=== PATIENT | female | born 1995 | race Caucasian/White ===

== ENCOUNTER 2020-11-04 13:23 | Outpatient (CLI) | payer OTHER, SELFPAY ==
--- NOTE | ~2020-11-04 | US_ITS ---
EXAMINATION: US OB /maternal detail DATE: 11/04/2020 14:15 INDICATION: survey TECHNIQUE: Multiple obstetric sonographic images performed. FINDINGS: No prior studies for comparison. There is a single living fetus in breech presentation. The placenta is posterior without placenta pr evia. Amniotic fluid volume is normal. cardiac activity and movement is noted with a heart rate of 149 beats per minute. The following anatomy was identified as normal: 3 vessel cord cord insertion kidneys urinary bladder stomach spine diaphragm ventricles cisterna magna cerebellum There is a small echogenic foci in the right ventricle. The four-chamber heart is otherwise within no rmal limits including outflow tracts. The following biometric data were obtained: BPD: 42mm corresponds to gestational age 18 weeks 4 days. Head circumference: 157 mm corresponds to gestational age 18 weeks 4 days. Abdominal circumference: 131 mm corresponds to gestational age 18 weeks 4 days. Femur length: 28 mm corresponds to gestational age 18 weeks 4 days. Head circumference to abdominal circumference ratio: 1.2 (normal range for expected gestational age i s 1.09-1.27). Estimated weight: 246 grams +/- 37 grams using Hadlock method. IMPRESSION: 1: Single living intrauterine with an estimated gestational age of 18weeks 4days by current ultrasound measurements, with an EDC of 04/03/2021 in breech presentation. 2. Small echogenic foci in the right ventricle. The four-chamber heart is otherwise within normal li mits including outflow tracts. Otherwise, unremarkable survey. Reviewed, dictated and finalized at location B. IMPRESSION: 1: Single living intrauterine with an estimated gestational age of 18 weeks 4days by current ultrasound measurements, with an EDC of 04/03/2021 in naresh ech presentation. 2. Small echogenic foci in the right ventricle. The four-chamber heart is othe rwise within normal limits including outflow tracts. Otherwise, unremarkable fe josé survey.
== END 2020-11-04 13:24 | disposition home or self-care (01) ==
PROVIDERS: PCP Family Medicine; Visit Provider Family Medicine
DX: Z34.92 Encounter for supervision of normal pregnancy, unspecified, second trimester (principal); Z3A.18 18 weeks gestation of pregnancy
CPT/HCPCS: 76805

== ENCOUNTER 2020-11-29 09:09 | Outpatient (CLI) | payer OTHER, SELFPAY ==
--- NOTE | ~2020-11-29 | US_ITS ---
EXAMINATION: US OB follow up DATE: 11/29/2020 09:49 INDICATION: Follow-up cardiac echogenic focus on prior ultrasound now during late second trimes ter . TECHNIQUE: Real-time ultrasound of the pelvis was performed. The interpreting radiologist was not pre sent for the study. COMPARISON: None. FINDINGS: There is a single living fetus in breech presentation. The placenta is posterior. heart rate i s 150 beats per minute (bpm). There appears to be linear echogenicity along the moderate or band in t he right ventricle and along the tricuspid and mitral valves no echogenic intracardiac focus along th e papillary muscles. The amniotic fluid index is 11.1 cm, which is normal (5th%-95%: 9.7-21.6 cm at 22 weeks estimated gestational age). The following biometric data were obtained: BPD: 5.3 cm -> 22 weeks 0 days Head circumference: 20.9 cm -> 23 weeks 0 days Abdominal circumference: 18.5 cm -> 23 weeks 2 days Femur length: 4.0 cm -> 23 weeks 0 days Cephalic index of 68.7 which is slightly below the normal range of 70-86. These measurements are otherwise concordant. Head circumference to abdominal circumference ratio: 1.13 (normal range 1.05-1.21). Estimated weight: 560 g (+/-) 84 g. or 1 lbs. 4 oz. (+/-) 3 oz. IMPRESSION: 1. Single living fetus in breech presentation with heart rate of 150 bpm. 2. Normal amniotic fluid index of 11.1 cm. 3. Estimated weight is 53rd percentile by Hadlock criteria when 03/29/2021 is used as the estima josé date of delivery (MADHAV). Please correlate with clinical information or earlier ultrasounds for mos t accurate MADHAV. 4. No evident echogenic intracardiac focus. 5. 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 Reviewed, dictated and finalized at location A. IMPRESSION: 1. Single living fetus in breech presentation with heart rate of 150 bpm. 2. Normal amniotic fluid index of 11.1 cm. 3. Estimated weight is 53rd percentile by Hadlock criteria when 03/29/2021 is used as the estimated date of delivery (MADHAV). Please correlate with clinica l information or earlier ultrasounds for most accurate MADHAV. 4. No evident echogenic intracardiac focus. 5. 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
== END 2020-11-29 09:10 | disposition home or self-care (01) ==
PROVIDERS: PCP Family Medicine; Visit Provider Family Medicine
DX: O35.8XX0 Maternal care for other (suspected) fetal abnormality and damage, not applicable or unspecified (principal); Z3A.23 23 weeks gestation of pregnancy
CPT/HCPCS: 76816